=== PATIENT | female | born 1980 | race Caucasian/White ===

== ENCOUNTER 2017-01-01 18:18 | Emergency (ER) | payer OTHER ==
[2017-01-01] MEDS ORDERED: methylPREDNISolone SOD SUCCI 125 MG/2 ML VIAL IM ONE (18:53)
--- NOTE | 2017-01-01 18:57 | ED ---
Back Pain HPI - General Chief Complaint: Back Pain/Injury Stated Complaint: lower back pain Time Seen by Provider: 01/01/17 18:37 Source: patient, RN notes reviewed Limitations: no limitations - History of Present Illness Initial Comments: Patient is a 36-year-old female presents emergency room for evaluation of low back pain. Patient states she was rolling up her carpet on Saturday and began having excruciating low back pain. Patient denies feeling any pops. Patient states she went to stand up and just felt pain in the center of her back. Patient states she's never had low back pain before. Patient denies pain or burning during urination, trouble urinating or blood in urine. Patient denies flank pain. Patient denies saddle anesthesia. Patient denies urinary or fecal incontinence. Patient denies numbness or tingling going down her extremities. Patient states she's been taking ibuprofen at home with no relief of symptoms. Patient states she has not been able to go to work the past 2 days because of pain. Patient stated the pain is worse with movement. Patient denies chest pain, nausea, vomiting, headache, dizziness. - Related Data Home Medications Medication Instructions Recorded Confirmed Bisoprolol-Hctz 5-6.25 mg [[place] 1 tab PO DAILY 01/01/17 01/01/17 5-6.25] Previous Rx's Medication Instructions Recorded HYDROcodone/APAP 5-325MG [[place] 1 tab PO Q6HR PRN #12 tab 01/01/17 5-325] predniSONE 50 mg PO DAILY #5 tab 01/01/17 Allergies Allergy/AdvReac Type Severity Reaction Status Date / Time No Known Allergies Allergy Verified 01/01/17 19:14 Review of Systems ROS Statement: Those systems with pertinent positive or pertinent negative responses have been documented in the HPI. ROS Other: All systems not noted in ROS Statement are negative. Past Medical History Past Medical History: Hypertension History of Any Multi-Drug Resistant Organisms: None Reported Past Surgical History: No Surgical Hx Reported Past Psychological History: No Psychological Hx Reported Smoking Status: Never smoker Past Alcohol Use History: Occasional Past Drug Use History: None Reported General Exam - General Exam Comments Initial Comments: Sitting up in exam room, no acute distress. Limitations: no limitations General appearance: alert, in no apparent distress Head exam: Present: atraumatic, normocephalic, normal inspection Eye exam: Present: normal appearance ENT exam: Present: normal exam Neck exam: Present: normal inspection Respiratory exam: Present: normal lung sounds bilaterally. Absent: respiratory distress Cardiovascular Exam: Present: regular rate, normal rhythm, normal heart sounds Extremities exam: Present: normal inspection, full ROM, normal capillary refill Back exam: Present: normal inspection, paraspinal tenderness, vertebral tenderness (Lumbosacral spine tenderness) Neurological exam: Present: alert, oriented X3, CN II-XII intact Psychiatric exam: Present: normal affect, normal mood Skin exam: Present: warm, dry, intact, normal color. Absent: rash Course Vital Signs 01/01/17 18:26 Temperature 97.8 F Pulse Rate 87 Respiratory 20 Rate Blood Pressure 186/96 O2 Sat by Pulse 98 Oximetry Medical Decision Making - Medical Decision Making Patient is a 36-year-old female presents to the emergency room for evaluation of acute low back pain. Place patient on prednisone and pain medications. Patient has no neuro deficits. Advised patient to follow-up with her primary care provider if symptoms are not improving. Patient noted to have elevated blood pressure. Patient states she takes blood pressure medications at home but did not take her dose today. Patient states she will take her medications when she gets home. Patient states she understands everything that was discussed with her. Return parameters discussed. Case discussed with Dr. Shay. Disposition Clinical Impression: Low back strain Disposition: HOME SELF-CARE Condition: Good Instructions: Acute Low Back Pain (ED) Additional Instructions: Take medications as directed. Please follow-up with primary care provider for reevaluation if symptoms are not improving. If any new symptom arises or symptoms worsen, return to ER as soon as possible. Prescriptions: HYDROcodone/APAP 5-325MG [[place] 5-325] 1 tab PO Q6HR PRN #12 tab PRN Reason: Pain predniSONE 50 mg PO DAILY #5 tab Referrals: Александр Carlton DO [Primary Care Provider] - 1-2 days Time of Disposition: 18:58
[2017-01-01 19:22] VITALS: BP 147/78; PULSE 65; RESP 18; TEMP 98
== END 2017-01-01 19:25 | disposition home or self-care (01) ==
LOC: EC 18:18
DX: S39.012A Strain of muscle, fascia and tendon of lower back, initial encounter (principal); X58.XXXA Exposure to other specified factors, initial encounter; I10 Essential (primary) hypertension; Z79.899 Other long term (current) drug therapy
CPT/HCPCS: 96372; 99283; J2930

== ENCOUNTER → 2018-01-01 | Outpatient (CLI) | payer OTHER ==
[2018-01-01 15:11] LABS: Basophils # (A) 0.1 k/uL (0-0.2); Basophils % (A) 1 %; Eosinophils # (A) 0.2 k/uL (0-0.7); Eosinophils % (A) 1 %; HCT 42.1 % (34.0-46.0); HGB 14.1 gm/dL (11.4-16.0); Lymphocytes # (A) 2.7 k/uL (1.0-4.8); Lymphocytes % (A) 25 %; MCH 26.5 pg (25.0-35.0); MCHC 33.6 g/dL (31.0-37.0); Mean Platelet Volume 6.8; Monocytes # (A) 0.4 k/uL (0-1.0); Monocytes % (A) 4 %; Neutrophils # (A) 7.1 k/uL (1.3-7.7); Neutrophils % (A) 68 %; Platelet Count 295 k/uL (150-450); RBC 5.33 m/uL (3.80-5.40); RDW 14.1 % (11.5-15.5); WBC 10.5 k/uL (3.8-10.6)
[2018-01-01 15:22] LABS: ALT 49 U/L (9-52); AST 44 U/L (14-36); Albumin 4.6 g/dL (3.5-5.0); Alkaline Phosphatase 69 U/L (38-126); Anion Gap 12 mmol/L; Blood Urea Nitrogen 12 mg/dL (7-17); Calcium 9.7 mg/dL (8.4-10.2); Carbon Dioxide 29 mmol/L (22-30); Chloride 97 mmol/L (98-107); Cholesterol 200 mg/dL (<200); Glucose 146 mg/dL (74-99); HDL Cholesterol 35 mg/dL (40-60); LDL Cholesterol,Calculated 90 mg/dL (0-99); Potassium 4.1 mmol/L (3.5-5.1); Sodium 138 mmol/L (137-145); Total Bilirubin 0.8 mg/dL (0.2-1.3); Total Protein 7.7 g/dL (6.3-8.2); Triglycerides 373 mg/dL (<150)
== END | disposition home or self-care (01) ==
LOC: LABWHC1 14:47
PROVIDERS: ATTEND Family Medicine
DX: Z00.00 Encounter for general adult medical examination without abnormal findings (principal); E78.2 Mixed hyperlipidemia; I10 Essential (primary) hypertension; R73.9 Hyperglycemia, unspecified
CPT/HCPCS: 36415; 80053; 80061; 85025

== ENCOUNTER 2019-04-13 01:16 | Emergency (ER) | payer OTHER ==
[2019-04-13] MEDS ORDERED: DIAZEPAM 5 MG TAB PO STA (02:49)
[2019-04-13] MEDS ORDERED: ACETAMINOPHEN TAB 500 MG TAB PO STA (02:51)
--- NOTE | 2019-04-13 03:40 | ED ---
General Adult HPI - General Source: patient Mode of arrival: ambulatory Limitations: no limitations <Maxx Cm - Last Filed: 04/13/19 03:49> <Shy Muniz - Last Filed: 04/14/19 06:00> - General Chief complaint: Back Pain/Injury Stated complaint: Back Pain Time Seen by Provider: 04/13/19 01:36 - History of Present Illness Initial comments: 39-year-old female patient past medical history of hypertension, lumbar back pain presents ED with bilateral lumbar back spasms. Patient reports that this has been ongoing for approximately 36 hours. Patient states that she has crampy pain in her bilateral paralumbar region. Patient denies any recent falls or trauma. Patient denies any loss of bowel or bladder control, saddle anesthesia, paresthesias lower extremity weakness, patient denies any chest pain or shortness of breath. Patient states that she is not . Denies other complaints. Systemic: Pt denies fatigue, fever/chills, rash. Pt denies weakness, night sweats, weight loss. Neuro: Pt denies headache, visual disturbances, syncope or pre-syncope. HEENT: Pt denies ocular discharge or irritation, otalgia, rhinorrhea, pharyngitis or notable lymphadenopathy. Cardiopulmonary: Pt denies chest pain, SOB, heart palpitations, dyspnea on exertion. Abdominal/GI: Pt denies abdominal pain, n/v/d. : Pt denies dysuria, burning w/ urination, frequency/urgency. Denies new onset urinary or bowel incontinence. MSK: Pt denies oss of strength or function in extremities. Neuro: Pt denies new onset weakness, paresthesias. (Maxx Cm) - Related Data Home Medications Medication Instructions Recorded Confirmed Bisoprolol-Hctz 5-6.25 mg [[place] 1 tab PO DAILY 01/01/17 01/01/17 5-6.25] Previous Rx's Medication Instructions Recorded HYDROcodone/APAP 5-325MG [[place] 1 tab PO Q6HR PRN #12 tab 01/01/17 5-325] predniSONE 50 mg PO DAILY #5 tab 01/01/17 Cyclobenzaprine [Flexeril] 10 mg PO TID #20 tab 04/13/19 Gabapentin [Neurontin] 300 mg PO TID 5 Days #15 cap 04/13/19 Allergies Allergy/AdvReac Type Severity Reaction Status Date / Time No Known Allergies Allergy Verified 01/01/17 19:14 Review of Systems ROS Other: All systems not noted in ROS Statement are negative. <Maxx Cm - Last Filed: 04/13/19 03:49> ROS Other: All systems not noted in ROS Statement are negative. <MunizShy P - Last Filed: 04/14/19 06:00> ROS Statement: Those systems with pertinent positive or pertinent negative responses have been documented in the HPI. Past Medical History Past Medical History: Hypertension History of Any Multi-Drug Resistant Organisms: None Reported Past Surgical History: Orthopedic Surgery Past Psychological History: No Psychological Hx Reported Smoking Status: Never smoker Past Alcohol Use History: Occasional Past Drug Use History: None Reported <Maxx Cm - Last Filed: 04/13/19 03:49> General Exam Limitations: no limitations <Maxx Cm - Last Filed: 04/13/19 03:49> - General Exam Comments Initial Comments: Constitutional: NAD, AOX3, Pt has pleasant affect. HEENT: NC/AT, trachea midline, neck supple, no lymphadenopathy. Posterior pharyn x non erythematous, without exudates. External ears appear normal, without discharge. Mucous membranes moist. Eyes PERRLA, EOM intact. There is no scleral icterus. No pallor noted. Cardiopulmonary: RRR, no murmurs, rubs or gallops, no JVD noted. Lungs CTAB in anterior and posterior payan. No peripheral edema. Abdominal exam: Abdomen soft and non-distended. Abdomen non-tender to palpation in all 4 quadrants. Bowel sounds active in LLQ. No hepatosplenomegaly. No ecchymosis Neuro: CN II-XII grossly intact. No nuchal rigidity. No raccon eyes, no deluca sign, no hemotympanum. No cervical spinal tenderness. MSK: Mild amount of bilateral paralumbar back tightness, mild tenderness to palpation. No midline cervical thoracic lumbar tenderness. Straight-leg raise negative bilaterally. Sensation intact. 5 out of 5 strength psoas and quadriceps muscles. No posterior calf tenderness bilaterally, homans sign negative bilaterally. Posterior tibialis and radial pulse +2 bilaterally. Sensation intact in upper and lower extremities. Full active ROM in upper and lower extremities, 5/5 stregnth. (Maxx Cm) Course Vital Signs 04/13/19 04/13/19 04/13/19 01:21 01:50 02:50 Temperature 97.8 F Pulse Rate 98 82 76 Respiratory 18 15 15 Rate Blood Pressure 155/105 128/72 120/76 O2 Sat by Pulse 100 98 Oximetry 04/13/19 03:54 Temperature 97.9 F Pulse Rate 79 Respiratory 14 Rate Blood Pressure 108/61 O2 Sat by Pulse 98 Oximetry Medical Decision Making <Maxx Cm - Last Filed: 04/13/19 03:49> <Shy Muniz - Last Filed: 04/14/19 06:00> - Medical Decision Making 39-year-old female patient past medical history of hypertension, lumbar back pain presents ED with bilateral lumbar back spasms. Patient reports that this has been ongoing for approximately 36 hours. Patient states that she has crampy pain in her bilateral paralumbar region. Patient denies any recent falls or trauma. Patient denies any loss of bowel or bladder control, saddle anesthesia, paresthesias lower extremity weakness, patient denies any chest pain or shortness of breath. Patient states that she is not . Denies other complaints. Physical exam displayed: Mild amount of bilateral paralumbar back tightness, mild tenderness to palpation. No midline cervical thoracic lumbar tenderness. Straight-leg raise negative bilaterally. Sensation intact. 5 out of 5 strength psoas and quadriceps muscles. No posterior calf tenderness bilaterally, homans sign negative bilaterally. Posterior tibialis and radial pulse +2 bilaterally. Sensation intact in upper and lower extremities. Full active ROM in upper and lower extremities, 5/5 stregnth. Physical exam is indicative of muscle spasm. Patient was administered diazepam, Tylenol. Patient's symptoms did improve. Patient discharged with Flexeril muscle relaxer. Patient follow up with primary care provider tomorrow. Patient given orthopedic consult if symptoms persist. Case discussed and pt seen by Dr. Marvel casanova who is in agreement with plan. (Maxx Cm) I was available for consultation in the emergency department. The history and physical exam were done by the midlevel provider. I was consulted for this patient's care. I reviewed the case with the midlevel provider and based on their presentation of the patient, I agree with the assessment, medical decision making and plan of care as documented. Chart was dictated using [employer] dictation software. Attempts were made to correct any dictation errors however some typographical errors may persist. (Shy Muniz) Disposition Is patient prescribed a controlled substance at d/c from ED?: No <RicosophiaMaxx Sima - Last Filed: 04/13/19 03:49> <Shy Muniz - Last Filed: 04/14/19 06:00> Clinical Impression: Muscle spasm Disposition: HOME SELF-CARE Condition: Stable Instructions (If sedation given, give patient instructions): Acute Low Back Pain (ED), Muscle Spasm (ED) Additional Instructions: Patient to adhere to previously discussed treatment plan and will take medication(s) as directed. Patient to follow up with PCP in 1-2 days. Patient to return to ED if symptoms do not improve. Take muscle relaxers as needed. Follow up with primary care provider tomorrow. Follow with orthopedic consult if symptoms persist. Prescriptions: Cyclobenzaprine [Flexeril] 10 mg PO TID #20 tab Gabapentin [Neurontin] 300 mg PO TID 5 Days #15 cap Referrals: Александр Carlton DO [Primary Care Provider] - 1-2 days Vince Thomas MD [STAFF PHYSICIAN] - 1-2 days
[2019-04-13 03:56] VITALS: BP 108/61; PULSE 79; RESP 14; TEMP 97.9
== END 2019-04-13 03:58 | disposition home or self-care (01) ==
LOC: EC 01:16
DX: M62.830 Muscle spasm of back (principal); I10 Essential (primary) hypertension; Z79.899 Other long term (current) drug therapy
CPT/HCPCS: 99283

== ENCOUNTER → 2019-05-01 | Outpatient (CLI) | payer OTHER ==
[2019-05-01 09:56] LABS: Basophils # (A) 0.1 k/uL (0-0.2); Basophils % (A) 1 %; Eosinophils # (A) 0.2 k/uL (0-0.7); Eosinophils % (A) 2 %; HCT 38.7 % (34.0-46.0); HGB 12.8 gm/dL (11.4-16.0); Lymphocytes # (A) 1.8 k/uL (1.0-4.8); Lymphocytes % (A) 21 %; MCHC 33.2 g/dL (31.0-37.0); MCV 81.5 fL (80.0-100.0); Mean Platelet Volume 7.3; Monocytes # (A) 0.4 k/uL (0-1.0); Monocytes % (A) 4 %; Neutrophils # (A) 6.1 k/uL (1.3-7.7); Neutrophils % (A) 70 %; Platelet Count 257 k/uL (150-450); RBC 4.75 m/uL (3.80-5.40); RDW 15.9 % (11.5-15.5); WBC 8.7 k/uL (3.8-10.6)
[2019-05-01 17:04] LABS: African American GFR (CKD) 127.4 (60.0-200.0); Albumin/Globulin Ratio 2.11 (1.60-3.17); Anion Gap 10.1 mmol/L (4.00-12.00); BUN/Creat Ratio 14.29 Ratio (12.00-20.00); Calcium 8.8 mg/dL (8.7-10.3); Carbon Dioxide 23.9 mmol/L (21.6-31.8); Globulin 1.9 g/dL (1.6-3.3); LDL Cholesterol,Calculated 74.4 mg/dL (0.0-131.0); Potassium 4.4 mmol/L (3.5-5.5); Total Bilirubin 0.3 mg/dL (0.3-1.2); Total Protein 5.9 g/dL (6.2-8.2); VLDL Calculation 54.6 mg/dL (5.00-40.00)
== END ==
LOC: LABWHC1 08:51
PROVIDERS: ATTEND Family Medicine
DX: Z00.00 Encounter for general adult medical examination without abnormal findings (principal); Z86.19 Personal history of other infectious and parasitic diseases
CPT/HCPCS: 36415; 80053; 80061; 85025; 86787

== ENCOUNTER → 2019-05-18 | Outpatient (CLI) | payer OTHER ==
[2019-05-19 02:16] LABS: Hemoglobin A1C 9.3 % (4.0-6.0)
== END | disposition home or self-care (01) ==
LOC: LABWHC1 17:19
PROVIDERS: ATTEND Family Medicine
DX: R73.9 Hyperglycemia, unspecified (principal)
CPT/HCPCS: 36415; 83036

== ENCOUNTER → 2019-05-28 | Outpatient (CLI) | payer OTHER ==
--- NOTE | 2019-05-28 17:13 | XR ---
EXAMINATION TYPE: XR knee complete LT DATE OF EXAM: 05/28/2019 COMPARISON: NONE HISTORY: Pain TECHNIQUE: 3 views FINDINGS: There is spurring of the medial femoral and tibial condyles. I see no fracture nor dislocat ion. Joint spaces are fairly normal. There is no sign of joint effusion. 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 No fracture.
== END | disposition home or self-care (01) ==
LOC: RADXRMAIN 16:54
PROVIDERS: ATTEND Emergency Medicine
DX: M17.12 Unilateral primary osteoarthritis, left knee (principal)

== ENCOUNTER → 2019-10-15 | Outpatient (CLI) | payer OTHER ==
[2019-10-15 19:40] LABS: Hemoglobin A1C 8.5 % (4.0-6.0)
== END | disposition home or self-care (01) ==
LOC: LABWHC1 11:59
PROVIDERS: ATTEND Family Medicine
DX: E11.9 Type 2 diabetes mellitus without complications (principal)
CPT/HCPCS: 36415; 83036

== ENCOUNTER 2020-09-25 13:55 | Emergency (ER) | payer OTHER ==
[2020-09-25 14:04] VITALS: BP 155/85; PULSE 83; RESP 18; TEMP 98.7
[2020-09-25] MEDS ORDERED: ACET/COD 300 MG/30 MG STARTER PACK 6 TAB BTL PO STA (14:29)
[2020-09-25] MEDS ORDERED: KETOROLAC 15 MG/ML 1 ML VIAL IM STA (14:29)
[2020-09-25] MEDS ORDERED: CYCLOBENZAPRINE 10MG STARTER 3 TAB BTL PO STA (14:29)
[2020-09-25] MEDS ORDERED: predniSONE 50 MG TAB PO STA (14:29)
[2020-09-25] MEDS ORDERED: HYDROmorphone 0.5 MG/0.5 ML SYRINGE IM STA (15:12)
--- NOTE | 2020-09-25 15:17 | ED ---
Neck Injury/Pain HPI - General Chief Complaint: Neck Pain/Injury Stated Complaint: Neck Pain Time Seen by Provider: 09/25/20 14:08 Mode of arrival: ambulatory Limitations: no limitations - History of Present Illness Initial Comments: 40-year-old female presenting today for chief complaint of right sided neck pain. pt states she woke up saturday with neck pain and it hurt to turn the neck. denies fever, uri symptoms. patient states it is localized to the posterior right side. patient denies experiencing this in the past. pt woke up with pain. pt denies weakness, injuries, sensation deficits. patient denies nausea, vomiting. patient states that she is able to ambulate without difficulty she is not off balance. patient states that she is not able to tolerate the pain and thus presented to the ER. pt states she has been applying heat, taking ibuprofen and her sister gave her a massage last night that seemd to help somewhat. pt concerned because she has final this week and cannot tolerate pain as it is now causing her to get headaches. - Related Data Home Medications Medication Instructions Recorded Confirmed Acetaminophen Tab [Tylenol] 650 mg PO Q4H PRN 09/25/20 09/25/20 Aspirin 162.5 mg PO DAILY PRN 09/25/20 09/25/20 Ibuprofen [Motrin Ib] 800 mg PO Q8H PRN 09/25/20 09/25/20 Naproxen 1,000 mg PO DAILY PRN 09/25/20 09/25/20 Valsartan [Diovan] 160 mg PO DAILY 09/25/20 09/25/20 Previous Rx's Medication Instructions Recorded Cyclobenzaprine [Flexeril] 10 mg PO TID PRN 5 Days #15 tab 09/25/20 Allergies Allergy/AdvReac Type Severity Reaction Status Date / Time No Known Allergies Allergy Verified 09/25/20 15:08 Review of Systems ROS Statement: Those systems with pertinent positive or pertinent negative responses have been documented in the HPI. ROS Other: All systems not noted in ROS Statement are negative. Past Medical History Past Medical History: Hypertension History of Any Multi-Drug Resistant Organisms: None Reported Past Surgical History: Orthopedic Surgery Past Psychological History: No Psychological Hx Reported Smoking Status: Current every day smoker Past Alcohol Use History: Rare Past Drug Use History: None Reported General Exam - General Exam Comments Initial Comments: General: The patient is awake and alert, in no distress, and does not appear acutely ill. Eye: +3 mm pupils are equal, round and reactive to light, extra-ocular movements are intact. No nystagmus. There is normal conjunctiva bilaterally. No signs of icterus. Ears, nose, mouth and throat: There are moist mucous membranes and no oral lesions. Neck: The neck is supple, there is no tenderness or JVD. pain to palpation posterior right side of neck. pain to rotation. protective head/neck postures Cardiovascular: There is a regular rate and rhythm. No murmur, rub or gallop is appreciated. Respiratory: Lungs are clear to auscultation, respirations are non-labored, breath sounds are equal. No wheezes, stridor, rales, or rhonchi. Gastrointestinal: Soft, non-distended, non-tender abdomen without masses or organomegaly noted. There is no rebound or guarding present. Musculoskeletal: Normal ROM, no tenderness. Strength 5/5 of the UE and LE b/l. Sensation intact. Radial pulses equal bilaterally 2+. Neurological: A&O x 3. CN II-XII intact, There are no obvious motor or sensory deficits. Coordination appears grossly intact. Speech is normal. Skin: Skin is warm and dry and no rashes or lesions are noted. Psychiatric: Cooperative, appropriate mood & affect, normal judgment. Limitations: no limitations Course Vital Signs 09/25/20 14:01 Temperature 98.7 F Pulse Rate 83 Respiratory 18 Rate Blood Pressure 155/85 O2 Sat by Pulse 99 Oximetry Medical Decision Making - Medical Decision Making 40 yo male presenting for cc of neck pain. woke up with it 2 days ago. localized tenderness to touch, no skin changes. feels like spasm, has pain to rotation. no fevers, CT brain (-), patietn requested. no focal deficits. patient has suspected torticollis. Patient be treated symptomatically and discharged home Dr. Sanford is agreeable to care plan as this patient she stated she felt much better after Dilaudid and has much more movement Disposition Clinical Impression: Neck muscle spasm, Headache Disposition: HOME SELF-CARE Condition: Good Instructions (If sedation given, give patient instructions): Spasmodic Torticollis (ED) Additional Instructions: Please use medication as discussed. Please follow-up with family doctor in the next 2 days . Please return to emergency room if the symptoms increase or worsen or for any other concerns. Prescriptions: Cyclobenzaprine [Flexeril] 10 mg PO TID PRN 5 Days #15 tab PRN Reason: Muscle Spasm Is patient prescribed a controlled substance at d/c from ED?: No Referrals: Александр Carlton DO [Primary Care Provider] - 1-2 days Time of Disposition: 16:10
--- NOTE | 2020-09-25 16:07 | CT ---
EXAMINATION TYPE: CT brain cspine wo con DATE OF EXAM: 09/25/2020 COMPARISON: None available. HISTORY: Neck pain, no injury CT DLP: 1773 mGycm Automated exposure control for dose reduction was used. TECHNIQUE: CT scan of the head and cervical spine are performed without contrast. FINDINGS: There is no acute intracranial hemorrhage, mass effect, or midline shift identified. The ventricles and sulci are within normal limits in size. The globes are intact and the visualized sin uses are clear. Cervical spine is visualized in its entirety from C1 through upper thoracic levels and demonstrates s atisfactory alignment without evidence of acute fracture or dislocation. There are small anterior end plate osteophytes at C6-C7. Otherwise the vertebral body and disc heights are grossly maintained. Pr evertebral soft tissue appears within normal limits. The C1-C2 articulation is unremarkable. IMPRESSION: 1. There is no acute fracture or dislocation evident in the cervical spine. 2. No acute intracranial hemorrhage, mass effect, or midline shift is seen.
== END 2020-09-25 16:23 | disposition home or self-care (01) ==
LOC: EC 13:55 → SUPCPDRO 13:55 → EC 16:23
DX: M62.838 Other muscle spasm (principal); R51.9 Headache, unspecified; I10 Essential (primary) hypertension; F17.200 Nicotine dependence, unspecified, uncomplicated; Z79.899 Other long term (current) drug therapy
CPT/HCPCS: 72125; 70450; 99283; 96372 ×2; J1885; J7512; J1170

== ENCOUNTER 2024-02-08 15:08 | Emergency (ER) | payer BC, OTHER ==
[2024-02-08 15:41] VITALS: RESP 18
[2024-02-08] MEDS: KETOROLAC 15 MG/ML 1 ML VIAL IM STA (16:46)
[2024-02-08] MEDS: LIDOCAINE 4% PATCH TOPICAL ONE (16:49)
--- NOTE | 2024-02-08 16:56 | ED ---
General Adult HPI - General Chief complaint: Extremity Injury, Upper Stated complaint: Pain in L upper arm Time Seen by Provider: 02/08/24 15:52 Source: patient, RN notes reviewed Mode of arrival: ambulatory Limitations: no limitations - History of Present Illness Initial comments: 43-year-old female presents to the emergency department for evaluation of left shoulder pain. Patient states that this started yesterday morning. Pain is over the location of the proximal biceps tendon. She notes that the pain is worse with abduction of her arm. She reports some pain with flexion but this is not as bad. She has been utilizing ibuprofen for this with some relief. She denies fever, chills, overlying skin changes. - Related Data Home Medications Medication Instructions Recorded Confirmed Valsartan [Diovan] 160 mg PO DAILY 09/25/20 12/04/21 Atorvastatin [Lipitor] 10 mg PO DAILY 12/04/21 12/04/21 Dapagliflozin Propanediol [Farxiga] 10 mg PO DAILY 12/04/21 12/04/21 Dulaglutide [Trulicity] 3 mg SQ MO 12/04/21 12/04/21 Ergocalciferol (Vitamin D2) 1,250 mcg PO TH 12/04/21 12/04/21 [Drisdol (50,000 Iu)] Fenofibrate [Lofibra] 54 mg PO DAILY 12/04/21 12/04/21 Multivitamins, Thera [Multivitamin 1 tab PO DAILY 12/04/21 12/04/21 (formulary)] Ubidecarenone [Co Q-10] 100 mg PO DAILY 12/04/21 12/04/21 Previous Rx's Medication Instructions Recorded Cyclobenzaprine HCl 10 mg PO TID PRN #20 tab 12/04/21 Ibuprofen [Motrin] 600 mg PO Q6HR PRN #30 tab 12/04/21 Cyclobenzaprine [Flexeril] 10 mg PO TID PRN #15 tab 02/08/24 Ketorolac [Toradol] 10 mg PO Q8HR #15 tab 02/08/24 Lidocaine 5% Patch [Lidoderm 5% 1 patch TOPICAL DAILY #30 patch 02/08/24 Patch] Allergies Allergy/AdvReac Type Severity Reaction Status Date / Time No Known Allergies Allergy Verified 12/04/21 17:25 Review of Systems ROS Statement: Those systems with pertinent positive or pertinent negative responses have been documented in the HPI. ROS Other: All systems not noted in ROS Statement are negative. Past Medical History Past Medical History: Diabetes Mellitus, Hypertension History of Any Multi-Drug Resistant Organisms: None Reported Past Surgical History: Orthopedic Surgery Past Psychological History: No Psychological Hx Reported Smoking Status: Current every day smoker Past Alcohol Use History: None Reported, Rare Past Drug Use History: None Reported General Exam Limitations: no limitations General appearance: alert, in no apparent distress Head exam: Present: atraumatic, normocephalic, normal inspection Eye exam: Present: normal appearance, PERRL, EOMI. Absent: scleral icterus, conjunctival injection, periorbital swelling ENT exam: Present: normal exam, mucous membranes moist Neck exam: Present: normal inspection. Absent: tenderness, meningismus, lymphadenopathy Respiratory exam: Present: normal lung sounds bilaterally. Absent: respiratory distress, wheezes, rales, rhonchi, stridor Cardiovascular Exam: Present: regular rate, normal rhythm, normal heart sounds. Absent: systolic murmur, diastolic murmur, rubs, gallop, clicks Extremities exam: Present: tenderness (Tenderness to palpation over the proximal bicep tendon, pain with supination & pronation), normal capillary refill, other. Absent: full ROM (decreased ROM at left shoulder d/t pain ) Neurological exam: Present: alert, oriented X3 Psychiatric exam: Present: normal affect, normal mood Skin exam: Present: warm, dry, intact, normal color. Absent: rash Course Vital Signs 02/08/24 02/08/24 02/08/24 15:26 16:28 17:11 Temperature 97.8 F 98.1 F Pulse Rate 88 61 Respiratory 18 18 Rate Blood Pressure 181/96 159/107 151/98 O2 Sat by Pulse 98 97 Oximetry Medical Decision Making - Medical Decision Making Was pt. sent in by a medical professional or institution (, PA, SANFORIZER, urgent care, hospital, or assisted...) When possible be specific @ -No Did you speak to anyone other than the patient for history (EMS, parent, family, police, friend...)? What history was obtained from this source @ -No Did you review nursing and triage notes (agree or disagree)? Why? @ -I reviewed and agree with nursing and triage notes Were old charts reviewed (outside hosp., previous admission, EMS record, old EKG, old radiological studies, urgent care reports/EKG's, assisted records)? Report findings @ -No old charts were reviewed Differential Diagnosis (chest pain, altered mental status, abdominal pain women, abdominal pain men, vaginal bleeding, weakness, fever, dyspnea, syncope, headache, dizziness, GI bleed, back pain, seizure, CVA, palpatations, mental health, musculoskeletal)? @ -Differential Musculoskeletal Muscular strain, contusion, ligament sprain, fracture, arthritis, septic arthritis, bursitis, cellulitis, muscle spasm, nerve compression, DVT, arterial occlusion, herpes zoster, electrolyte abnormality, tumor.... This is not meant to be in all inclusive list EKG interpreted by me (3pts min.). @ -None X-rays interpreted by me (1pt min.). @ -None done CT interpreted by me (1pt min.). @ -None done U/S interpreted by me (1pt. min.). @ -None done What testing was considered but not performed or refused? (CT, X-rays, U/S, labs )? Why? @ -None What meds were considered but not given or refused? Why? @ -None Did you discuss the management of the patient with other professionals (professionals i.e. , PA, SANFORIZER, lab, RT, psych nurse, drug abuse social worker, hose stripper, teacher, licensed loan officer, trimming caser)? Give summary @ -No Was smoking cessation discussed for >3mins.? @ -No Was critical care preformed (if so, how long)? @ -No Were there social determinants of health that impacted care today? How? (Homelessness, low income, unemployed, alcoholism, drug addiction, transportation, low edu. Level, literacy, decrease access to med. care, [facility], rehab)? @ -No Was there de-escalation of care discussed even if they declined (Discuss DNR or withdrawal of care, Hospice)? DNR status @ -No What co-morbidities impacted this encounter? (DM, HTN, Smoking, COPD, CAD, Cancer, CVA, ARF, Chemo, Hep., AIDS, mental health diagnosis, sleep apnea, morbid obesity)? @ -None Was patient admitted / discharged? Hospital course, mention meds given and route, prescriptions, significant lab abnormalities, going to OR and other pertinent info. @ -Discharged. Patient presented to the emergency department for evaluation of left shoulder pain. She states that this started yesterday morning. She does report to lifting heavy weights 2 to 3 days prior to this starting. She does admit to taking ibuprofen with some relief. Patient has clinical presentation of biceps tendinitis with tenderness to palpation and positive Speed's test. Patient will be treated with anti-inflammatory medications, lidocaine patches. Patient requesting muscle relaxer. Advised not to drive or operate heavy machinery while taking this medication. Patient understanding agreeable plan. Patient stable at time of discharge. Case discussed with Dr. Shay Undiagnosed new problem with uncertain prognosis? @ -No Drug Therapy requiring intensive monitoring for toxicity (Heparin, Nitro, Insulin, Cardizem)? @ -No Were any procedures done? @ -No Diagnosis/symptom? @ -Biceps tendonitis Acute, or Chronic, or Acute on Chronic? @ -acute Uncomplicated (without systemic symptoms) or Complicated (systemic symptoms)? @ -uncomplicated Side effects of treatment? @ -No Exacerbation, Progression, or Severe Exacerbation? @ -No Poses a threat to life or bodily function? How? (Chest pain, [place], [place], pneumonia, PE, COPD, DKA, ARF, appy, cholecystitis, CVA, Diverticulitis, Homicidal, Suicidal, threat to staff... and all critical care pts) @ -No Disposition Clinical Impression: Biceps tendinitis of left shoulder Disposition: HOME SELF-CARE Condition: Stable Instructions (If sedation given, give patient instructions): Tendinitis (ED) Additional Instructions: Please do not take any other anti-inflammatory medications if taking the toradol. Follow up with your primary care provider. Return to the emergency dep artment for new or worsening symptoms. Prescriptions: Cyclobenzaprine [Flexeril] 10 mg PO TID PRN #15 tab PRN Reason: Muscle Spasm Lidocaine 5% Patch [Lidoderm 5% Patch] 1 patch TOPICAL DAILY #30 patch Ketorolac [Toradol] 10 mg PO Q8HR #15 tab Is patient prescribed a controlled substance at d/c from ED?: No Referrals: None,Stated [Primary Care Provider] - 1-2 days Jonathon Michaels DO [Doctor of Osteopathic Medicine] - 1-2 days Time of Disposition: 16:56
[2024-02-08 17:35] VITALS: BP 151/98; PULSE 61; TEMP 98.1
== END 2024-02-08 19:21 | disposition home or self-care (01) ==
LOC: EC 15:08
DX: M75.22 Bicipital tendinitis, left shoulder (principal); F17.200 Nicotine dependence, unspecified, uncomplicated
CPT/HCPCS: 99283; 96372; J1885

== ENCOUNTER 2024-09-16 17:28 | Emergency (ER) | payer OTHER, BC ==
--- NOTE | 2024-09-16 18:00 | ED ---
General Adult HPI - General Chief complaint: Recheck/Abnormal Lab/Rx Stated complaint: needle stick/[facility] Time Seen by Provider: 09/16/24 17:40 Source: patient, RN notes reviewed Mode of arrival: ambulatory Limitations: no limitations - History of Present Illness Initial comments: This is a 44-year-old female presenting with needlestick accident at work today. Patient states she was driving blood for a Reyna Guidry, a psych patient, when he suddenly moved, causing her to poke the inner aspect of her left thumb with a butterfly needle. Patient states Reyna's blood was drawn for analysis and is requesting blood draw for self as well. Patient states she cleaned the needlestick injury copiously with soap and water. States her tetanus vaccination status is up-to-date. MD Complaint: Left thumb needlestick Onset/Timin -: hour(s) Time: 13:30 - Related Data Home Medications Medication Instructions Recorded Confirmed Valsartan [Diovan] 160 mg PO DAILY 09/25/20 12/04/21 Atorvastatin [Lipitor] 10 mg PO DAILY 12/04/21 12/04/21 Dapagliflozin Propanediol [Farxiga] 10 mg PO DAILY 12/04/21 12/04/21 Dulaglutide [Trulicity] 3 mg SQ MO 12/04/21 12/04/21 Ergocalciferol (Vitamin D2) 1,250 mcg PO TH 12/04/21 12/04/21 [Drisdol (50,000 Iu)] Fenofibrate [Lofibra] 54 mg PO DAILY 12/04/21 12/04/21 Multivitamins, Thera [Multivitamin 1 tab PO DAILY 12/04/21 12/04/21 (formulary)] Ubidecarenone [Co Q-10] 100 mg PO DAILY 12/04/21 12/04/21 Previous Rx's Medication Instructions Recorded Cyclobenzaprine HCl 10 mg PO TID PRN #20 tab 12/04/21 Ibuprofen [Motrin] 600 mg PO Q6HR PRN #30 tab 12/04/21 Cyclobenzaprine [Flexeril] 10 mg PO TID PRN #15 tab 02/08/24 Ketorolac [Toradol] 10 mg PO Q8HR #15 tab 02/08/24 Lidocaine 5% Patch [Lidoderm 5% 1 patch TOPICAL DAILY #30 patch 02/08/24 Patch] Allergies Allergy/AdvReac Type Severity Reaction Status Date / Time No Known Allergies Allergy Verified 09/16/24 17:37 Review of Systems ROS Statement: Those systems with pertinent positive or pertinent negative responses have been documented in the HPI. ROS Other: All systems not noted in ROS Statement are negative. Past Medical History Past Medical History: Diabetes Mellitus, Hypertension History of Any Multi-Drug Resistant Organisms: None Reported Past Surgical History: Orthopedic Surgery Past Psychological History: No Psychological Hx Reported Smoking Status: Current every day smoker Past Alcohol Use History: None Reported, Rare Past Drug Use History: None Reported General Exam Limitations: no limitations General appearance: alert, in no apparent distress Head exam: Present: atraumatic, normocephalic, normal inspection Eye exam: Present: normal appearance, PERRL, EOMI. Absent: scleral icterus, conjunctival injection, periorbital swelling ENT exam: Present: normal exam, mucous membranes moist Neck exam: Present: normal inspection. Absent: tenderness, meningismus, lymphadenopathy Respiratory exam: Present: normal lung sounds bilaterally. Absent: respiratory distress, wheezes, rales, rhonchi, stridor Cardiovascular Exam: Present: regular rate, normal rhythm, normal heart sounds. Absent: systolic murmur, diastolic murmur, rubs, gallop, clicks GI/Abdominal exam: Present: soft, normal bowel sounds. Absent: distended, tenderness, guarding, rebound, rigid Extremities exam: Present: normal inspection, full ROM, normal capillary refill. Absent: tenderness, pedal edema, joint swelling, calf tenderness Back exam: Present: normal inspection Neurological exam: Present: alert, oriented X3, CN II-XII intact Psychiatric exam: Present: normal affect, normal mood Skin exam: Present: warm, dry, intact, normal color, other (Mild erythema on inner aspect of left thumb with no obvious puncture wound or bleeding). Absent: rash Course Vital Signs 09/16/24 09/16/24 17:35 18:20 Temperature 99.3 F 98.7 F Pulse Rate 68 64 Respiratory 21 18 Rate Blood Pressure 141/80 138/79 O2 Sat by Pulse 99 99 Oximetry Medical Decision Making - Medical Decision Making Was pt. sent in by a medical professional or institution (, PA, WINDOWS SERVER ARCHITECT, urgent care, hospital, or prison...) When possible be specific @ -No Did you speak to anyone other than the patient for history (EMS, parent, family, police, friend...)? What history was obtained from this source @ -No Did you review nursing and triage notes (agree or disagree)? Why? @ -I reviewed and agree with nursing and triage notes Were old charts reviewed (outside hosp., previous admission, EMS record, old EKG, old radiological studies, urgent care reports/EKG's, prison records)? Report findings @ -No old charts were reviewed Differential Diagnosis (chest pain, altered mental status, abdominal pain women, abdominal pain men, vaginal bleeding, weakness, fever, dyspnea, syncope, headache, dizziness, GI bleed, back pain, seizure, CVA, palpatations, mental health, musculoskeletal)? @ -Needlestick, hepatitis, HIV, cellulitis EKG interpreted by me (3pts min.). @ -Not done X-rays interpreted by me (1pt min.). @ -None done CT interpreted by me (1pt min.). @ -None done U/S interpreted by me (1pt. min.). @ -None done What testing was considered but not performed or refused? (CT, X-rays, U/S, labs)? Why? @ -None What meds were considered but not given or refused? Why? @ -PEP medication for HIV was considered but withheld until initial HIV results for Raymo D returns, ideally within 72 hours. Did you discuss the management of the patient with other professionals (professionals i.e. , PA, WINDOWS SERVER ARCHITECT, lab, RT, psych nurse, social group worker, sole dyer, teacher, community development officer, classification case manager)? Give summary @ -No Was smoking cessation discussed for >3mins.? @ -No Was critical care preformed (if so, how long)? @ -No Were there social determinants of health that impacted care today? How? (Homelessness, low income, unemployed, alcoholism, drug addiction, transportation, low edu. Level, literacy, decrease access to med. care, [facility], rehab)? @ -No Was there de-escalation of care discussed even if they declined (Discuss DNR or withdrawal of care, Hospice)? DNR status @ -No What co-morbidities impacted this encounter? (DM, HTN, Smoking, COPD, CAD, Cancer, CVA, ARF, Chemo, Hep., AIDS, mental health diagnosis, sleep apnea, morbid obesity)? @ -None Was patient admitted / discharged? Hospital course, mention meds given and route, prescriptions, significant lab abnormalities, going to OR and other pertinent info. @ -Patient's blood drawn and advised to refer to the [facility] website for lab results. Undiagnosed new problem with uncertain prognosis? @ -No Drug Therapy requiring intensive monitoring for toxicity (Heparin, Nitro, Insulin, Cardizem)? @ -No Were any procedures done? @ -No Diagnosis/symptom? @ -Needlestick injury, blood pathogen screening Acute, or Chronic, or Acute on Chronic? @ -Acute Uncomplicated (without systemic symptoms) or Complicated (systemic symptoms)? @ -Uncomplicated Side effects of treatment? @ -No Exacerbation, Progression, or Severe Exacerbation? @ -No Poses a threat to life or bodily function? How? (Chest pain, [place], [place], pneumonia, PE, COPD, DKA, ARF, appy, cholecystitis, CVA, Diverticulitis, Homicidal, Suicidal, threat to staff... and all critical care pts) @ -No - Lab Data Lab Results 09/16/24 09/16/24 Range/Units 17:48 17:48 Hepatitis A IgM Ab Nonreactive (Nonreactive) Hep Bs Antigen Nonreactive Nonreactive (Nonreactive) Hep Bs Antibody (Negative) Hep Bs Antibody, Quant 3.5 mIU/mL Hep B Core Total Ab Nonreactive (Nonreactive) Hep B Core IgM Ab Nonreactive (Nonreactive) Hep C IgG Ab Nonreactive Nonreactive (Nonreactive) Disposition Clinical Impression: Needlestick injury accident Disposition: HOME SELF-CARE Condition: Good Instructions (If sedation given, give patient instructions): Postexposure Prophylaxis (ED) Is patient prescribed a controlled substance at d/c from ED?: No Referrals: Александр Carlton DO [Primary Care Provider] - 1-2 days Time of Disposition: 18:00
[2024-09-16 18:22] VITALS: BP 138/79; PULSE 64; RESP 18; TEMP 98.7
[2024-09-17 04:20] LABS: Hepatitis B Surface Antigen Nonreactive (Nonreactive); Hepatitis C IgG Antibody Nonreactive (Nonreactive)
[2024-09-17 04:30] LABS: Hepatitis A Antibody IgM Nonreactive (Nonreactive); Hepatitis B Core IgM Nonreactive (Nonreactive); Hepatitis C IgG Antibody Nonreactive (Nonreactive)
[2024-09-17 04:36] LABS: Hepatitis B Surface AB- Quant 3.5 mIU/mL
[2024-09-17 05:21] LABS: Hepatitis B Surface Antigen Nonreactive (Nonreactive)
[2024-09-18 12:31] LABS: HIV 2 AB Non-Reactive (Non-Reactive); HIV AB P24 Non-Reactive (Non-Reactive); HIV P24 AG Non-Reactive (Non-Reactive)
== END 2024-09-16 18:20 | disposition home or self-care (01) ==
LOC: EC 17:28
DX: S61.032A Puncture wound without foreign body of left thumb without damage to nail, initial encounter (principal); F17.200 Nicotine dependence, unspecified, uncomplicated; W46.0XXA Contact with hypodermic needle, initial encounter; Y99.0 Civilian activity done for income or pay
CPT/HCPCS: 36415; 80074; 86704; 86706; 86803; 87340; 87390; 99283